=== PATIENT | male | born 1985 | race Caucasian/White ===

== ENCOUNTER 2019-08-23 10:32 | Emergency (ER) | payer SELFPAY ==
[~2019-08-23] VITALS: Ht 188 cm; Wt 73.0 kg
[2019-08-23] MEDS ORDERED: BACITRACIN ZIN1 EACH TOPIC (10:38)
[2019-08-23 10:44] VITALS: BP 143/88
[2019-08-23] MEDS ORDERED: Tetracaine 0.5% Opth 4ml Soln RIGHT EYE ONE (10:45)
[2019-08-23 10:46] VITALS: BP 143/88
--- NOTE | 2019-08-23 10:46 | NUR ---
ED Nurse Note: Pt refused all treatment, medication wasted and returned to [facility]. Pt is cleared to be discharged by ERMD. Pt on handcuff, verbalized understanding of D/C instructions and follow up care. Pt was able to ambulate out with steady gait. NO sign of acute distress.
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
== END 2019-08-23 11:15 ==
LOC: EMR 11:06
DX: H10.211 Acute toxic conjunctivitis, right eye (principal); S60.512A Abrasion of left hand, initial encounter; S60.511A Abrasion of right hand, initial encounter; S50.312A Abrasion of left elbow, initial encounter; S50.311A Abrasion of right elbow, initial encounter; Y35.893A Legal intervention involving other specified means, suspect injured, initial encounter; Y92.9 Unspecified place or not applicable
CPT/HCPCS: 99281